=== PATIENT | female | born 1990 | race Caucasian/White ===

== ENCOUNTER 2016-11-21 18:03 | Observation (INO) | payer OTHER ==
--- NOTE | 2016-11-21 18:43 | ER Document Report ---
ED Medical Screen (RME) - General Stated Complaint: ABDOMINAL PAIN Notes: RLQ abdominal pain that started today around one oclock. started after she ate lunch has been constipated for the past couple of days. she had a suppository today as well. has not had an appendectomy loose BM after suppository no fever denies h/o chrons, UC, IBS no rebound tenderness I have greeted and performed a rapid initial assessment of this patient. A comprehensive ED assessment and evaluation of the patient, analysis of test results and completion of the medical decision making process will be conducted by additional ED providers. - Related Data Allergies/Adverse Reactions: No Known Allergies Allergy (Unverified 11/21/16 18:38) Physical Exam - Vital signs Vitals: Temp Pulse Resp BP Pulse Ox 97.4 F 58 L 20 107/66 100 11/21/16 18:34 11/21/16 18:34 11/21/16 18:34 11/21/16 18:34 11/21/16 18:34 Course - Vital Signs Vital signs: Temp Pulse Resp BP Pulse Ox 97.4 F 58 L 20 107/66 100 11/21/16 18:34 11/21/16 18:34 11/21/16 18:34 11/21/16 18:34 11/21/16 18:34
[2016-11-21] MEDS ORDERED: ONDANSETRON 4 MG TAB.RAPDIS PO ONE (18:45)
[2016-11-21] MEDS ORDERED: ACETAMINOPHEN 325 MG TABLET PO ONE (18:59)
[2016-11-21 19:15] LABS: APPEARANCE,URINE SLIGHTLY-CLOUDY; BILIRUBIN,URINE NEGATIVE (NEGATIVE); GLUCOSE, URINE NEGATIVE (NEGATIVE); KETONES,URINE 80 mg/dL (NEGATIVE); LEUKOCYTE ESTERASE,URINE NEGATIVE (NEGATIVE); NITRITE,URINE NEGATIVE (NEGATIVE); PROTEIN,URINE NEGATIVE (NEGATIVE); URINE SPECIFIC GRAVITY 1.021; UROBILINOGEN,URINE NEGATIVE mg/dL (<2.0)
[2016-11-21 19:18] LABS: HEMATOCRIT 35.1 % (36.0-47.0); HEMOGLOBIN 11.5 g/dL (12.0-15.5); HGB HCT DIFFERENCE -0.6; MEAN CORPUSCULAR HEMOGLOBIN 28.8 pg (27.0-33.4); MEAN CORPUSCULAR HGB CONC 32.9 g/dL (32.0-36.0); MEAN CORPUSCULAR VOLUME 88 fl (80-97); RED BLOOD COUNT 4.01 10^6/uL (3.72-5.28); WHITE BLOOD COUNT 24.4 10^3/uL (4.0-10.5)
[2016-11-21 19:34] LABS: ALANINE AMINOTRANSFERASE 35 U/L (9-52); ALBUMIN 4.5 g/dL (3.5-5.0); ALKALINE PHOSPHATASE 91 U/L (38-126); ANION GAP 16 (5-19); ASPARTATE AMINO TRANSFERASE 26 U/L (14-36); BILIRUBIN,TOTAL 0.6 mg/dL (0.2-1.3); BLOOD UREA NITROGEN 13 mg/dL (7-20); CALCIUM 10.2 mg/dL (8.4-10.2); CARBON DIOXIDE 23 mmol/L (22-30); CHLORIDE 101 mmol/L (98-107); CREATININE RESULT 0.63 mg/dL (0.52-1.25); GLUCOSE 131 mg/dL (75-110); LIPASE 59.8 U/L (23-300); TOTAL PROTEIN 7.8 g/dL (6.3-8.2)
[2016-11-21 19:37] LABS: BASOPHILS % (MANUAL) 0 % (0-2); EOSINOPHILS % (MANUAL) 1 % (0-6); LYMPHOCYTES % (MANUAL) 6 % (13-45); TOTAL CELLS COUNTED 100
[2016-11-21 19:38] LABS: ANISOCYTOSIS SLIGHT; TOXIC GRANULATION SLIGHT
[2016-11-21] MEDS ORDERED: NORMAL SALINE 1000 ML 1,000 ML IV ONE (20:50)
[2016-11-21] MEDS ORDERED: MORPHINE SULFATE 10 MG/ML INJ IV ONE ×2 (20:52→23:01)
--- NOTE | 2016-11-21 20:52 | ER Document Report ---
ED GI/ - General Chief Complaint: Abdominal Pain Stated Complaint: ABDOMINAL PAIN Time seen by provider: 20:50 Notes: Patient is a 26-year-old female that comes emergency department for chief complaint of right lower quadrant pain that began at 1 PM today, it is worsening , patient states she's beginning to feel nauseated, she denies vomiting. Last meal was 1 PM. Patient states that yesterday she had a hard bowel movement, she took a suppository, had a soft bowel movement today. Patient was taking Percocet up until Thursday of this week secondary to a wisdom tooth removal last week. Patient denies any fever, denies any vaginal discharge or bleeding. Patient has had a right ovary removal secondary to ovarian torsion from a cyst. TRAVEL OUTSIDE OF THE [place] IN LAST 30 DAYS: No - Related Data Allergies/Adverse Reactions: amoxicillin Allergy (Verified 11/21/16 21:21) Past Medical History - General Information source: Patient - Social History Smoking Status: Never Smoker Chew tobacco use (# tins/day): No Frequency of alcohol use: Occasional Drug Abuse: None Lives with: Family Family History: Reviewed & Not Pertinent Patient has suicidal ideation: No Patient has homicidal ideation: No Renal/ Medical History: Reports: Hx Ovarian Cysts. Denies: Hx Peritoneal Dialysis Past Surgical History: Reports: Hx Gynecologic Surgery - right ovary removal - Immunizations Hx Diphtheria, Pertussis, Tetanus Vaccination: Yes Review of Systems - Review of Systems Constitutional: No symptoms reported EENT: No symptoms reported Cardiovascular: No symptoms reported Respiratory: No symptoms reported Gastrointestinal: See HPI Genitourinary: See HPI Female Genitourinary: No symptoms reported Musculoskeletal: No symptoms reported Skin: No symptoms reported Hematologic/Lymphatic: No symptoms reported Neurological/Psychological: No symptoms reported Physical Exam - Vital signs Vitals: Temp Pulse Resp BP Pulse Ox 97.4 F 58 L 20 107/66 100 11/21/16 18:34 11/21/16 18:34 11/21/16 18:34 11/21/16 18:34 11/21/16 18:34 Interpretation: Normal - General General appearance: Anxious In distress: Mild - Patient appears to be uncomfortable - HEENT Head: Normocephalic, Atraumatic Eyes: Normal Conjunctiva: Normal Eyelashes: Normal Pupils: PERRL Sinus: Normal Nasal: Normal Mouth/Lips: Normal Mucous membranes: Dry Pharynx: Normal Neck: Normal - Respiratory Respiratory status: No respiratory distress Chest status: Nontender Breath sounds: Normal Chest palpation: Normal - Cardiovascular Rhythm: Regular Heart sounds: Normal auscultation Murmur: No - Abdominal Inspection: Normal Distension: No distension Bowel sounds: Normal Tenderness: Tender - Mildly tender in the right upper quadrant, tender with guarding in the right lower quadrant at McBurney's point Organomegaly: No organomegaly - Back Back: Normal, Nontender. No: Tender - Extremities General upper extremity: Normal inspection, Nontender, Normal color, Normal ROM , Normal temperature General lower extremity: Normal inspection, Nontender, Normal color, Normal ROM , Normal temperature, Normal weight bearing. No: Kathy's sign - Neurological Neuro grossly intact: Yes Cognition: Normal Orientation: AAOx4 [place] Coma Scale Eye Opening: Spontaneous [place] Coma Scale Verbal: Oriented [place] Coma Scale Motor: Obeys Commands [place] Coma Scale Total: 15 Speech: Normal Motor strength normal: LUE, RUE, LLE, RLE Sensory: Normal - Psychological Associated symptoms: Normal affect, Normal mood - Skin Skin Temperature: Warm Skin Moisture: Dry Skin Color: Normal Course - Re-evaluation Re-evalutation: Patient with guarding in the right lower quadrant on examination, mild right upper quadrant pain, afebrile, not tachycardic or hypotensive. Patient does not have guarding in the rest of the abdomen. Ultrasound reviewed and shows cholelithiasis with no pericholecystic fluid or wall thickening, unremarkable exam otherwise. Images show attempts at visualization of the appendix but these were unsuccessful. CBC shows leukocytosis at 24.4 with elevation of neutrophils, chemistry and urinalysis are unremarkable except for ketones in the urine, patient given IV hydration, kept nothing by mouth. 11/21/16 21:25 Called Surgeon supervisor [employer] division Dr. Serra, he requests CT abd/pelvis with IV/oral contrast. Starting Levaquin and Flagyl, patient reports allergy to amoxicillin. Patient again in pain and having nausea, additional medication provided. Delay in obtaining CAT scan because of system error. 11/22/16 01:[address] Serra, discussed cat scan results of acute appendicitis with enlarged appendix at 14 mm with surrounding inflammatory symptoms. He agrees to admit the patient for definitive treatment of acute appendicitis. Patient was discussed with Dr. Mendiola and patient was evaluated at bedside by Dr. Mendiola. - Vital Signs Vital signs: Temp Pulse Resp BP Pulse Ox 97.4 F 58 L 20 107/66 100 11/21/16 18:34 11/21/16 18:34 11/21/16 18:34 11/21/16 18:34 11/21/16 18:34 - Laboratory Result Diagrams: 11/21/16 18:52 11/21/16 18:52 Laboratory results interpreted by me: 11/21/16 11/21/16 11/21/16 18:52 18:52 18:52 WBC 24.4 H Hgb 11.5 L Hct 35.1 L Seg Neuts % (Manual) 88 H Lymphocytes % (Manual) 6 L Abs Neuts (Manual) 21.5 H Glucose 131 H Urine Ketones 80 H Discharge - Discharge Clinical Impression: Right lower quadrant pain, Nausea Acute appendicitis Qualifiers: Acute appendicitis type: with localized peritonitis Qualified Code(s): K35.3 - Acute appendicitis with localized peritonitis Leukocytosis Qualifiers: Leukocytosis type: unspecified Qualified Code(s): D72.829 - Elevated white blood cell count, unspecified Condition: Stable Disposition: ADMITTED INPATIENT Admitting Provider: Surgicalist Unit Admitted: Surgical Floor
[2016-11-21] MEDS ORDERED: LEVOFLOXACIN 750 MG/D5W RTU 150 ML IV ONE (20:55)
[2016-11-21] MEDS ORDERED: METRONIDAZOLE 500 MG/NS RTU 100 ML IV ONE (20:55)
[2016-11-21] MEDS ORDERED: ONDANSETRON HCL INJ/PF 4 MG/2 ML SDV IV ONE (21:16)
[2016-11-21] MEDS ORDERED: METOCLOPRAMIDE HCL INJ/PF 10 MG/2 ML SDV ONE (23:15)
[2016-11-22] MEDS ORDERED: METOCLOPRAMIDE HCL INJ/PF 10 MG/2 ML SDV IV ONE (00:04)
[2016-11-22] MEDS ORDERED: NORMAL SALINE 1000 ML 1,000 ML IV ONE (00:59)
[2016-11-22] MEDS ORDERED: NORMAL SALINE 1000 ML 1,000 ML IV PRN (00:59)
[2016-11-22] MEDS ORDERED: DEXTROSE 5%-WATER 1000 ML 1,000 ML with POTASSIUM CHLORIDE 20 MEQ IV PRN ×2 (02:29)
[2016-11-22] MEDS ORDERED: HYDROMORPHONE HCL INJ/PF 2 MG/ML AMPULE IV PRN (02:30)
[2016-11-22] MEDS ORDERED: ONDANSETRON HCL INJ/PF 4 MG/2 ML SDV IV PRN ×2 (02:32→12:02)
[2016-11-22] MEDS: METRONIDAZOLE 500 MG/NS RTU 100 ML IV SCH ×2 (05:57→14:25)
[2016-11-22] MEDS ORDERED: BUPIVACAINE HCL 0.5%-EPI 1:200000 INJ/PF 30 ML VIAL ONE (08:53)
[2016-11-22] MEDS ORDERED: LEVOFLOXACIN 750 MG/D5W RTU 750 MG/150 ML RTUPB IV SCH (10:00)
[2016-11-22] MEDS ORDERED: MIDAZOLAM 2 MG/2 ML INJ ONE (10:37)
[2016-11-22] MEDS ORDERED: FENTANYL CITRATE INJ/PF 100 MCG/2 ML AMPUL ONE (10:37)
[2016-11-22] MEDS ORDERED: PROPOFOL INJ 200 MG/20 ML VIAL IV ONE (10:37)
[2016-11-22] MEDS ORDERED: ACETAMINOPHEN 100 ML IV ONE (10:37)
[2016-11-22] MEDS ORDERED: HYDROMORPHONE HCL INJ/PF 2 MG/ML AMPULE ONE (10:37)
[2016-11-22] MEDS ORDERED: MORPHINE SULFATE 10 MG/ML INJ IV PRN (12:02)
[2016-11-22] MEDS ORDERED: PROMETHAZINE HCL INJ 25 MG/1 ML VIAL IV PRN (12:02)
[2016-11-22] MEDS ORDERED: FENTANYL CITRATE INJ/PF 100 MCG/2 ML AMPUL IV PRN (12:02)
[2016-11-22] MEDS: FENTANYL CITRATE INJ/PF 100 MCG/2 ML AMPUL ONE ×2 (12:18→12:23)
[2016-11-22] MEDS ORDERED: ONDANSETRON HCL INJ/PF 4 MG/2 ML SDV ONE (12:45)
[2016-11-22] MEDS ORDERED: PROMETHAZINE HCL INJ 25 MG/1 ML VIAL ONE (12:48)
--- NOTE | 2016-11-22 13:28 | DISCHARGE SUMMARY E ---
Discharge Summary NAME: CAMILA GARCIA : 1990 AGE: 26Y ADMITTED: 11/22/2016 DISCHARGED: 11/22/2016 FINAL DIAGNOSIS: Acute appendicitis. DISCHARGE DIAGNOSIS: Acute appendicitis. PROCEDURES PERFORMED: Laparoscopic appendectomy. HOSPITAL COURSE: The patient did very well and is going to be discharged home this afternoon with a followup planned in the office in 2 weeks in Surgery [facility]. DICTATING PHYSICIAN: VIVIANA JOSEPH M.D. [id number] PHY#: [id number] ID: [id number] JOB#: [id number] ACCT: [id number] cc:[facility], VIVIANA CORDERO MD, M.D, M.D., IVAN PA >
--- NOTE | 2016-11-22 14:43 | OPERATIVE REPORT E ---
Operative Report NAME: CAMILA GARCIA : 1990 AGE: 26Y DATE OF SURGERY: 11/22/2016 ROOM: 204 PREOPERATIVE DIAGNOSIS: Acute appendicitis. POSTOPERATIVE DIAGNOSIS: Acute appendicitis. OPERATION: Laparoscopic appendectomy. SURGEON: VIVIANA JOSEPH M.D. ANESTHESIA: General. 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 BLOOD LOSS: 5 mL. TISSUE REMOVED OR ALTERED: Appendix. INDICATIONS: Patient presented with abdominal pain. CT scan revealed acute appendicitis and admitted for n.p.o., observation and antibiotics, brought in for laparoscopic appendectomy. Explained to the patient indications of the operation, risks, benefits, and complications, including, but not limited to, infection, bleeding, pain, and possibility of abscess, further need for operations. With informed consent, the patient was taken to the operating room. DESCRIPTION OF OPERATION: The patient in the supine position with CD boots. The patient was given antibiotic with Levaquin and Flagyl. The abdomen was cleaned and draped for sterile field. A supraumbilical about 1 cm incision was made and a 12 mm trocar inserted. Under laparoscopic visualization, a 5 mm trocar was inserted on the left lower abdomen and another 5 in the *------* area. Laparoscopic examination of the abdominal cavity revealed appendix inflamed and thickened esteban. The defect was seen with a small amount of serous fluid in the pelvis but no abscess and no gangrene or perforation. The serous fluid in the pelvis and parasacral area was drained out and the appendix was mobilized carefully after immobilizing the cecum. The mesoappendix was divided by using Enseal device with complete hemostasis. The appendix was dissected out to the level of the base, close to the cecum. The appendix was divided by using a #60 stapler. Stapler points were perfectly healthy, were vascularized, no bleeding. Another *------*. The abdominal cavity, pelvic cavity, and pericolic gutters were irrigated and suctioned out, completely hemostatic. All the trocars were removed. All pneumoperitoneum cleared. The fascia was closed using 0-Vicryl for the fascia, 3-0 Monocryl for the skin. The patient was awakened and transferred in stable condition. DICTATING PHYSICIAN: VIVIANA JOSEPH M.D. [id number] PHY#: [id number] ID: [id number] JOB#: [id number] ACCT: [id number] cc:VIVIANA JOSEPH M.D. >
[2016-11-22] MEDS ORDERED: NEOSTIGMINE METHYLSULFATE 10 MG/10 ML VIAL ONE (14:51)
[2016-11-22] MEDS ORDERED: GLYCOPYRROLATE INJ 0.4 MG/2 ML VIAL ONE (14:51)
[2016-11-22] MEDS ORDERED: ROCURONIUM BROMIDE INJ 50 MG/5 ML VIAL IV ONE (14:51)
[2016-11-22] MEDS ORDERED: OXYCODONE-ACETAMINOPHEN 5-325 MG TABLET PO PRN (15:40)
[2016-11-22 17:47] VITALS: BP 105/61
--- NOTE | 2016-11-22 19:15 | HISTORY AND PHYSICAL E ---
History and Physical NAME: CAMILA GARCIA : 1990 AGE: 26Y ADMITTED: 11/22/2016 ROOM: [facility] HISTORY OF PRESENT ILLNESS: A 26-year-old female patient, admitted on date of service 11/22/2016, in the early-morning hours. The patient was admitted through emergency room for management of acute appendicitis. The patient presented with 2 days of abdominal pain, history of nausea, and the pain was initially in the right upper quadrant area and then she got ultrasound; and, because of that, and she did show to have some gallstones but no information. Because of pain and the white count was close to 20, we obtained a CT scan, which revealed appendicitis. On admission, IV antibiotics started, and then a plan for a laparoscopic appendectomy. PAST MEDICAL PROBLEMS: None. SURGICAL HISTORY: No major surgical history in the past. ALLERGIES: PENICILLIN. PHYSICAL EXAMINATION: GENERAL: A very young female patient, pleasant female patient, not in any distress, afebrile. HEAD AND NECK: No lymphadenopathy. No masses. CHEST: Both lungs clear to auscultation. CARDIOVASCULAR: no chest pain . ABDOMEN: Soft. Tenderness in the right lower abdomen, particularly the right area. No rebound. No masses found. No hernia. EXTREMITIES: Normal. Well perfused. DIAGNOSTIC DATA: White count was more than 20,000. CT scan revealed acute appendicitis. PLAN: IV antibiotics of Flagyl and Levaquin, because she is allergic to penicillin. The plan is to keep her n.p.o. for an emergency appendectomy. DICTATING PHYSICIAN: VIVIANA JOSEPH M.D. [id number] PHY#: [id number] ID: [id number] JOB#: [id number] ACCT: [id number] cc:[facility], NO MD Shemar MARTINEZ
== END 2016-11-22 19:19 | disposition home or self-care (01) ==
LOC: ER 18:03 → 2N 11-22 01:39 → UNDOADMOB 11-22 02:11 → EH 11-22 02:11 → 2N 11-22 02:40 → EH 11-22 02:40
PROC: 0DTJ4ZZ Resection of Appendix, Percutaneous Endoscopic Approach (ICD-10-PCS; principal; 2016-11-22 11:00)
DX: K35.80 Unspecified acute appendicitis (principal); Z88.1 Allergy status to other antibiotic agents
CPT/HCPCS: 44970; 96376; 99285; 96361; 96375; 96365; 96367; 36415; 83690; 84703; 85025; 80053; 81001; 88304 ×2; 76705; 93976; 74177; G0378 ×2; J2250; J3490 ×2; S0119; J3010; J2765; J2270; J1170; J2550; J2405 ×2; J7030 ×2; J2704; J1956 ×2; J0131; 840

== ENCOUNTER → 2018-09-16 | Outpatient (CLI) | payer OTHER ==
--- NOTE | 2018-09-16 09:06 | RADIOLOGY REPORT (SQ) ---
EXAM DESCRIPTION: CT ABD/PELVIS NO ORAL OR IV COMPLETED DATE/TIME: 09/16/2018 8:38 am REASON FOR STUDY: RLQ PAIN (R10.31), LLQ PAIN (R10.32), NAUSEA (R11.0), LBP (M54.5) R10.31 RIGHT LO WER QUADRANT PAIN R10.32 LEFT LOWER QUADRANT PAIN R11.0 NAUSEA COMPARISON: 11/21/2016 TECHNIQUE: CT scan of the abdomen and pelvis performed without intravenous or oral contrast. Images reviewed with lung, soft tissue, and bone windows. Reconstructed coronal and sagittal MPR images revi ewed. All images stored on PACS. All CT scanners at this facility use dose modulation, iterative reconstruction, and/or weight based d osing when appropriate to reduce radiation dose to as low as reasonably achievable (ALARA). [facility]: Dose Right [facility]: CareDose [facility]: Dose Right [facility]: Teradose 4D [facility]: ChickRx RADIATION DOSE: CT Rad equipment meets quality standard of care and radiation dose reduction techniq ues were employed. CTDIvol: 6.2 mGy. DLP: 341 mGy-cm.mGy. LIMITATIONS: None. FINDINGS: LOWER CHEST: No significant findings. No nodules or infiltrates. NON-CONTRASTED LIVER, SPLEEN, ADRENALS: Evaluation limited by lack of IV contrast. No identified sign ificant masses. PANCREAS: No masses. No peripancreatic inflammatory changes. GALLBLADDER: No identified stones by CT criteria. No inflammatory changes to suggest cholecystitis. RIGHT KIDNEY AND URETER: No suspicious masses. Assessment limited by lack of IV contrast. No signif icant calcifications. No hydronephrosis or hydroureter. LEFT KIDNEY AND URETER: No suspicious masses. Assessment limited by lack of IV contrast. No signifi cant calcifications. No hydronephrosis or hydroureter. AORTA AND RETROPERITONEUM: No aneurysm. No retroperitoneal masses or adenopathy. BOWEL AND PERITONEAL CAVITY: No obvious masses or inflammatory changes. No free fluid. APPENDIX: Surgically absent. PELVIS, BLADDER, AND ABDOMINAL WALL:No abnormal masses. No free fluid. Bladder normal. BONES: No significant findings. OTHER: No other significant finding. IMPRESSION: NO SIGNIFICANT OR ACUTE PROCESS IN THE ABDOMEN OR PELVIS. COMMENT: Quality ID # [id number]: Final reports with documentation of one or more dose reduction techniques (e.g., Automated exposure control, adjustment of the mA and/or kV according to patient size, use of iterative reconstruction technique) TECHNICAL DOCUMENTATION: JOB ID: [id number] [employer]- All Rights Reserved Reading location - IP/workstation name: [email or web address]
[2018-09-16 09:13] LABS: ABSOLUTE BASOPHILS # (AUTO) 0.1 10^3/uL (0.0-0.2); ABSOLUTE EOSINOPHILS # (AUTO) 0.5 10^3/uL (0.0-0.6); ABSOLUTE LYMPHOCYTES (AUTO) 2.3 10^3/uL (0.5-4.7); ABSOLUTE MONOCYTES (AUTO) 0.3 10^3/uL (0.1-1.4); ABSOLUTE NEUT (AUTO) 3.2 10^3/uL (1.7-8.2); BASOPHILS % (AUTO) 0.8 % (0-2); EOSINOPHILS % (AUTO) 8.1 % (0-6); HEMOGLOBIN 12.4 g/dL (12.0-15.5); LYMPHOCYTES % (AUTO) 35.7 % (13-45); MEAN CORPUSCULAR HEMOGLOBIN 30.5 pg (27.0-33.4); MEAN CORPUSCULAR HGB CONC 33.6 g/dL (32.0-36.0); MEAN CORPUSCULAR VOLUME 91 fl (80-97); PLATELET COUNT 337 10^3/uL (150-450); RED BLOOD COUNT 4.08 10^6/uL (3.72-5.28); RED CELL DISTRIBUTION WIDTH 12.9 % (11.5-14.0); SEGMENTED NEUTROPHILS % (AUTO) 50.4 % (42-78); TOTAL CELLS COUNTED % (AUTO) 100 %; WHITE BLOOD COUNT 6.4 10^3/uL (4.0-10.5)
[2018-09-16 09:29] LABS: ALANINE AMINOTRANSFERASE 18 U/L (9-52); ALBUMIN 4.1 g/dL (3.5-5.0); ALKALINE PHOSPHATASE 50 U/L (38-126); ANION GAP 9 (5-19); ASPARTATE AMINO TRANSFERASE 24 U/L (14-36); BILIRUBIN,DIRECT 0.3 mg/dL (0.0-0.4); BILIRUBIN,TOTAL 0.6 mg/dL (0.2-1.3); BLOOD UREA NITROGEN 12 mg/dL (7-20); CALCIUM 9.5 mg/dL (8.4-10.2); CARBON DIOXIDE 24 mmol/L (22-30); CHLORIDE 108 mmol/L (98-107); GLUCOSE 97 mg/dL (75-110); POTASSIUM 4.6 mmol/L (3.6-5.0); SODIUM 141.3 mmol/L (137-145); TOTAL PROTEIN 7.3 g/dL (6.3-8.2)
[2018-09-16 09:43] LABS: APPEARANCE,URINE CLOUDY; BILIRUBIN,URINE NEGATIVE (NEGATIVE); COLOR,URINE YELLOW; GLUCOSE, URINE NEGATIVE (NEGATIVE); KETONES,URINE NEGATIVE (NEGATIVE); LEUKOCYTE ESTERASE,URINE NEGATIVE (NEGATIVE); NITRITE,URINE NEGATIVE (NEGATIVE); PROTEIN,URINE NEGATIVE (NEGATIVE); URINE SPECIFIC GRAVITY 1.019; UROBILINOGEN,URINE NEGATIVE mg/dL (<2.0)
== END ==
LOC: RAD 08:12
PROVIDERS: ATTEND Internal Medicine Gastroenterology
DX: R10.31 Right lower quadrant pain (principal); R10.32 Left lower quadrant pain; R11.0 Nausea; M54.5 Low back pain
CPT/HCPCS: 36415; 74176; 80053; 81001; 85025